=== PATIENT | female | born 1950 | race Caucasian/White ===

== ENCOUNTER 2018-11-03 07:44 | Outpatient (CLI) | payer MEDICARE, BC ==
--- NOTE | 2018-11-03 08:10 | RAD ---
EXAM: 2 views chest PROVIDED CLINICAL HISTORY: Dyspnea COMPARISON: 07/28/2005 FINDINGS: Cardiac silhouette is within normal. Hiatal hernia is demonstrated. Calcified granuloma right lung ba se. No focal consolidation, pleural fluid or pneumothorax apparent. IMPRESSION: No evidence for an acute cardiopulmonary process.
== END 2018-11-03 07:45 | disposition home or self-care (01) ==
LOC: RAD 07:44
PROVIDERS: ATTEND Internal Medicine Critical Care Medicine
DX: R06.00 Dyspnea, unspecified (principal)
CPT/HCPCS: 71046

== ENCOUNTER 2019-09-20 17:05 | Emergency (ER) | payer MEDICARE, BC ==
[~2019-09-20 17:05] MED LIST: Iopamidol-370 76% 500 ML 1 ML ONE
[2019-09-20 17:31] LABS: #Basophils 0.1 thou/uL (0.0-0.2); #Eosinphils 0.1 thou/uL (0.0-0.7); #Lymphocytes 1.3 thou/uL (1.20-3.40); #Monocytes 0.5 thou/uL (0.11-0.59); #Neutrophils 4.7 thou/uL (1.40-6.50); %Basophils 0.9 % (0.0-1.0); %Eosinophils 2.2 % (0.0-10.0); %Lymphocytes 19.5 % (21.0-51.0); %Monocytes 7.3 % (0.0-10.0); %Neutrophils 70.2 % (42.0-75.0); Hemoglobin 12.5 g/dL (12.0-16.0); Mean Corpuscular HGB CONC 33.4 g/dL (32.0-36.0); Mean Corpuscular Hemoglobin 31.3 pg (27.0-31.0); Mean Corpuscular Volume 93.6 fL (78.0-98.0); Mean Platelet Volume 8.3 fL (7.4-10.4); Platelet Count 272 thou/uL (130-400); RBC Distribution Width 13.1 % (11.5-14.5); Red Blood Cell (RBC) Count 3.99 mill/uL (4.20-5.40); White Blood Cell (WBC) Count 6.7 thou/uL (4.8-10.8)
--- NOTE | 2019-09-20 17:43 | RAD ---
TWO VIEWS CHEST: 09/20/19 COMPARISON: 11/03/18 HISTORY: Chest pressure and cough. FINDINGS: Two views of the chest shows normal sized cardiomediastinal silhouette. There is a moderate hiatal he rnia. There is no evidence of consolidation, mass, or pleural effusion. IMPRESSION: 1. No evidence of acute cardiopulmonary disease. 2. Moderate hiatal hernia. POS: [facility]
[2019-09-20 17:53] LABS: ALT (SGPT) 15 U/L (8-55); AST (SGOT) 23 U/L (5-34); Albumin 3.9 g/dL (3.4-4.8); Alkaline Phosphatase 80 U/L (40-110); Anion Gap 14 mmol/L (10-20); BUN (Urea Nitrogen) 15 mg/dL (9.8-20.1); Bilirubin, Total 0.2 mg/dL (0.2-1.2); Calc. Creatinine Clearance 0 mL/min (70-130); Carbon Dioxide 25 mmol/L (23-31); Chloride 104 mmol/L (98-107); Estimated GFR-MDRD 56; Globulin 3.4 g/dL (2.4-3.5); Glucose 97 mg/dL (80-115); Potassium 4.6 mmol/L (3.5-5.1); Protein, Total 7.3 g/dL (6.0-8.3); Sodium 138 mmol/L (136-145)
--- NOTE | 2019-09-20 21:47 | CT ---
CT angiogram chest: 09/20/2019 COMPARISON: None HISTORY: Chest pain and shortness of breath TECHNIQUE: Axial CT imaging at 2.5 mm intervals through the chest with IV contrast using CT angiogram protocol. Coronal and oblique sagittal 3-D reformatted imaging obtained. FINDINGS: There is no axillary, or subcarinal lymphadenopathy. Mildly prominent lymph nodes in the pr evascular space noted, measuring up to approximately 8-9 mm. Mildly enlarged 1.2 cm left hilar lymph node and mildly enlarged 1.1 cm right hilar lymph node noted. Limited assessment of the upper a bdomen demonstrates no acute findings. There is a moderate sized sliding-type hiatal hernia involving the majority of the gastric fundus and a portion of the gastric body. No significant pleura l, pericardial, or mediastinal fluid is noted. No pulmonary arterial filling defect is seen to suggest the presence of acute pulmonary arterial embo lism. There is a rounded area of masslike pulmonary parenchymal opacity abutting the posteromedial pleura w ithin the right lower lobe region measuring 3.9 cm in greatest dimension. There are linear densities emanating from this extending into the adjacent lung parenchyma raising the possibility of rounded atelectasis. The masslike configuration of this lesion makes it impossible to exclude malignancy on the basis of this examination. There is mild linear density within the right middle lob e anteriorly/medially. The left lung appears grossly unremarkable. Review of the osseous structures demonstrates no acute findings. IMPRESSION: No evidence for pulmonary arterial embolism. Masslike pleural-based opacity within the ri ght lower lobe as detailed above. Short-term follow-up CT examination in [address] is advised. Follow-up pulmonary consultation is advised as well. The differential diagnosis for this [facility] includes bronchogenic carcinoma and rounded atelectasis. Hiatal hernia. CODE T Code LN
[2019-09-20 22:56] LABS: Troponin I Less than 0.010 ng/mL (< 0.028)
== END 2019-09-20 23:42 | disposition home or self-care (01) ==
LOC: ERS 17:05
DX: R07.9 Chest pain, unspecified (principal); R91.8 Other nonspecific abnormal finding of lung field; F41.0 Panic disorder [episodic paroxysmal anxiety]; E78.00 Pure hypercholesterolemia, unspecified; Z87.891 Personal history of nicotine dependence; Z79.899 Other long term (current) drug therapy
CPT/HCPCS: 36415; 71046; 71275; 80053; 83690; 84484; 85025; 85379; 93005; Q9967

== ENCOUNTER 2020-01-10 08:15 | Outpatient (CLI) | payer MEDICARE, BC ==
--- NOTE | 2020-01-10 09:48 | CT ---
CHEST CT SCAN WITHOUT IV CONTRAST: Date: 01/10/2020 HISTORY: Follow-up lung nodule. Cough and wheezing. COMPARISON: CT angiogram chest dated 09/20/2019. FINDINGS: The previously noted medial posterior right lower lobe pleural based mass is again noted and is stabl e in size, measuring approximately 3.9 cm in maximum length. There is some minimal associated linear parenchymal change with this mass, as well as some pleural thickening in the right posterior chest, a s well as some bilateral upper lobe pleural thickening. Scattered interstitial and honeycombing llanos es noted, particularly in the mid lung zones, right middle lobe, and lingula. This is evidence for so me underlying chronic interstitial disease. Moderate to large hiatal hernia. No acute pleural effusio n. No evidence for mediastinal mass. Mediastinal lymph nodes are stable. Visualized upper abdomen is unremarkable. IMPRESSION: 1. Stable pleural based mass-like opacity in the right lower lobe. Since this has not resolved since the prior 09/20/2019 study, consideration for follow-up PET scan might be entertained for further ev aluation. 2. Stable hiatal hernia. 3. Stable minimal interstitial and honeycombing chronic appearing changes. CODE T. CODE LN. POS: [facility]
== END 2020-01-10 08:16 | disposition home or self-care (01) ==
LOC: BICCT 08:15
PROVIDERS: ATTEND Internal Medicine Critical Care Medicine
DX: R91.1 Solitary pulmonary nodule (principal); K44.9 Diaphragmatic hernia without obstruction or gangrene; J98.4 Other disorders of lung
CPT/HCPCS: 71250

== ENCOUNTER 2020-05-09 10:45 | Outpatient (CLI) | payer MEDICARE, BC | END 2020-05-09 10:46 | disposition home or self-care (01) | LOC: CTENTCT 10:45 | PROVIDERS: ATTEND Specialist | DX: J32.9 Chronic sinusitis, unspecified (principal) | CPT/HCPCS: 70486 ==

== ENCOUNTER 2020-07-02 09:59 | Outpatient (CLI) | payer MEDICARE, BC ==
--- NOTE | 2020-07-02 12:21 | CT ---
CT OF CHEST PERFORMED WITHOUT CONTRAST ENHANCEMENT: Date: 07/02/2020 HISTORY: Follow-up pleural based opacity in right lower lobe. COMPARISON: 01/10/2020 and 09/20/2019. FINDINGS: The lungs show some subpleural reticular scarring in the right upper lobe, stable. The pleural based opacity within the right lung base in more of a paravertebral location. It is stable in size. It maria esther ures 3.8 cm in maximum dimension. No additional pulmonary findings. No significant mediastinal adenopathy appreciated or hilar adenopathy on this noncontrast study. A la rge hiatal hernia is seen. Visualized liver parenchymal shows no focal abnormality. There is some cortical scarring involving th e upper pole of the right kidney. IMPRESSION: 1. Stable appearance to the pleural based right lower lobe mass measuring 3.8 cm. Additional 6 month follow-up CT examination would be recommended to assess for stability. Consideration for PET scan ma y also be helpful. Given relative stability, this may represent an area of rounded atelectasis. 2. Large hiatal hernia. POS: [facility]
== END 2020-07-02 10:00 | disposition home or self-care (01) ==
LOC: BICCT 09:59
PROVIDERS: ATTEND Internal Medicine Critical Care Medicine
DX: R91.1 Solitary pulmonary nodule (principal); K44.9 Diaphragmatic hernia without obstruction or gangrene; R91.8 Other nonspecific abnormal finding of lung field
CPT/HCPCS: 71250

== ENCOUNTER 2020-07-12 07:46 | Outpatient (CLI) | payer MEDICARE, BC ==
--- NOTE | 2020-07-12 10:14 | PET ---
EXAM: PET/CT HISTORY: Solitary pulmonary nodule TECHNIQUE: PET scanning with CT attenuation correction was performed from the base of the brain to the proximal thighs following the intravenous administration of 11.9 millicuries [id number]. COMPARISON: CTA of the thorax dated September 20, [address] of the thorax without contrast July 02, 2020 FINDINGS: Biodistribution:The biodistribution for the exam appears acceptable. Head and neck: There is appropriate background activity within the brain. No hypermetabolic lymphaden opathy or masses identified. Thorax: The large pleural-based soft tissue density within the posterior medial aspect of the right l ower lobe is relatively stable in size measuring 4.9 x 2.3 cm. There is crowding of the surrounding pulmonary vasculature near this region. There are swirling linear density extending to this pleural-b ased density. The peak SUV uptake is 2.26 and mean uptake is 2.13. No additional focal pulmonary lesion is evident. No hypermetabolic pleural effusion or lymphadenopathy is evident. There is a large sized hiatal hernia. There are calcified lymph nodes within the right hilar region. Abdomen and pelvis: There is expected background activity within the GI and systems. No hypermetab olic mass, lymphadenopathy or ascites is present. Osseous structures and skin: No hypermetabolic skin or osseous lesion is identified. IMPRESSION: The large pleural-based soft tissue density within the posterior medial aspect of the right lower lob e has been relatively stable since August 2019. There is crowding of the adjacent pulmonary vasculature . There are are swirling linear opacities extending into the pleural-based mass consisten t with comet tailing. There is no overt hypermetabolic uptake associated with this lesion. Consultation findings are most consistent with rounded atelectasis.
== END 2020-07-12 07:47 | disposition home or self-care (01) ==
LOC: PET 07:46
PROVIDERS: ATTEND Internal Medicine Critical Care Medicine
DX: R91.1 Solitary pulmonary nodule (principal); R91.8 Other nonspecific abnormal finding of lung field; J98.4 Other disorders of lung
CPT/HCPCS: 78815; A9552

== ENCOUNTER 2021-09-23 10:16 | Outpatient (CLI) | payer MEDICARE, BC ==
[2021-09-23 18:13] LABS: SARS-CoV-2 PCR by NAA Not Detected (NotDetected)
== END 2021-09-23 10:17 | disposition home or self-care (01) ==
LOC: LABBT 10:16
PROVIDERS: ATTEND Internal Medicine
DX: K44.9 Diaphragmatic hernia without obstruction or gangrene (principal); R13.14 Dysphagia, pharyngoesophageal phase; R11.2 Nausea with vomiting, unspecified; Z20.822 Contact with and (suspected) exposure to COVID-19
CPT/HCPCS: U0003; U0005

== ENCOUNTER 2021-09-26 09:10 | Outpatient (CLI) | payer MEDICARE, BC | END 2021-09-26 09:11 | disposition home or self-care (01) | LOC: RAD 09:10 | PROVIDERS: ATTEND Internal Medicine | DX: K44.9 Diaphragmatic hernia without obstruction or gangrene (principal) | CPT/HCPCS: 74246 ==

== ENCOUNTER 2021-10-03 08:56 | Outpatient (CLI) | payer MEDICARE, BC ==
[2021-10-03 09:42] LABS: #Eosinphils 0.1 10x3/uL (0.0-0.5); #Monocytes 0.4 10x3/uL (0.0-1.1); #Neutrophils 3.4 10x3/uL (1.5-8.4); %Basophils 0.6 % (0.0-2.0); %Eosinophils 2.4 % (0.0-6.0); %Lymphocytes 21.3 % (18.0-47.0); %Neutrophils 67.5 % (40.0-75.0); Hemoglobin 11.4 g/dL (12.0-15.5); Mean Corpuscular HGB CONC 30.5 g/dL (32.0-36.0); Mean Corpuscular Hemoglobin 27.7 pg (27.0-33.0); Mean Corpuscular Volume 90.8 fl (81.6-98.3); Mean Platelet Volume 10.3 fl (7.4-10.4); Platelet Count 256 10x3/uL (150-450); RBC Distribution Width 16.1 % (11.5-14.5); Red Blood Cell (RBC) Count 4.12 10x6/uL (3.90-5.03)
[2021-10-03 10:28] LABS: Anion Gap 13 mmol/L (10-20); BUN (Urea Nitrogen) 14 mg/dL (9.8-20.1); Calc. Creatinine Clearance 0 mL/min (70-130); Carbon Dioxide 24 mmol/L (23-31); Chloride 106 mmol/L (98-107); Glucose 93 mg/dL (80-115); Potassium 4.2 mmol/L (3.5-5.1); Sodium 139 mmol/L (136-145)
[2021-10-03 17:48] LABS: SARS-CoV-2 PCR by NAA Not Detected (NotDetected)
== END 2021-10-03 08:57 | disposition home or self-care (01) ==
LOC: LABBT 08:56
PROVIDERS: ATTEND Specialist
DX: Z01.818 Encounter for other preprocedural examination (principal); K44.9 Diaphragmatic hernia without obstruction or gangrene; Z20.822 Contact with and (suspected) exposure to COVID-19
CPT/HCPCS: 80048; 85025; 93005; U0003; U0005; 93010

== ENCOUNTER 2021-10-08 07:10 | Inpatient (IN) | payer MEDICARE, BC ==
[2021-10-03 13:06] VITALS: BMI 29.0
[2021-10-08] MEDS ORDERED: Acetaminophen 500 MG TAB ONE (09:21)
[2021-10-08] MEDS ORDERED: Fentanyl 100 MCG/2 ML VIAL ONE ×3 (10:55→14:37)
[2021-10-08] MEDS ORDERED: Bupivacaine 0.25% 10 ML VIAL ONE ×2 (10:56→10:57)
[2021-10-08] MEDS ORDERED: Lidocaine 1% w/Epinephrine 1:100K 30 ML VIAL ONE (10:57)
[2021-10-08] MEDS ORDERED: ceFAZolin 2 GM/Dextrose 50 ML IVPB ONE (11:06)
[2021-10-08] MEDS ORDERED: Rocuronium Bromide 10 MG/ML (10ML VIAL) ONE (11:21)
[2021-10-08] MEDS ORDERED: PROPOFOL 200 MG/20 ML VIAL ONE (11:21)
[2021-10-08] MEDS ORDERED: Lidocaine 1% PF 5 ML VIAL ONE (11:21)
[2021-10-08] MEDS ORDERED: Dexamethasone 20 MG/5 ML VIAL ONE (11:21)
[2021-10-08] MEDS ORDERED: Ondansetron PF 4 MG/2 ML Vial ONE (11:21)
[2021-10-08] MEDS ORDERED: Metoprolol Tartrate 5 MG/5 ML VIAL ONE (11:21)
[2021-10-08] MEDS ORDERED: Glycopyrrolate 0.2 MG/ML 5 ML SYRINGE ONE (11:21)
[2021-10-08] MEDS ORDERED: Esmolol 100 MG/10 ML VIAL ONE (11:21)
[2021-10-08] MEDS ORDERED: Promethazine HCl 25 MG/ML VIAL IM PRN ×3 (14:26→14:40)
[2021-10-08] MEDS ORDERED: Promethazine HCl 25 MG/ML VIAL IVPB PRN ×2 (14:26→14:27)
[2021-10-08] MEDS ORDERED: Ondansetron HCl/PF 4 MG/2 ML Vial IVP PRN ×2 (14:26→14:27)
[2021-10-08] MEDS ORDERED: Mag-Al 1200 mg/1200 mg/30 ML UDCUP PO PRN (14:40)
[2021-10-08] MEDS ORDERED: Calcium Carbonate 500 MG ChewTAB PO PRN (14:40)
[2021-10-08] MEDS ORDERED: Dextrose 5% in Water 1,000 ML IV PRN (14:40)
[2021-10-08] MEDS ORDERED: Dextrose 50% Abboject 50 ML SYRINGE SLOW IVP PRN (14:40)
[2021-10-08] MEDS ORDERED: traMADol HCl 50 MG TAB PO PRN ×2 (14:40)
[2021-10-08] MEDS ORDERED: hydrALAZINE 20 MG/ML VIAL SLOW IVP PRN (14:40)
[2021-10-08] MEDS ORDERED: Morphine 4 MG/ML VIAL SLOW IVP PRN (14:46)
[2021-10-08] MEDS: D5 1/2 NS w/20 mEq KCL 1,000 ML IV SCH ×2 (16:27→19:35)
[2021-10-08] MEDS: Morphine 4 MG/ML VIAL SLOW IVP PRN ×2 (17:03→21:09)
[2021-10-08] MEDS: Famotidine/PF 20 mg/2ml Vial SLOW IVP SCH (19:31)
[2021-10-08] MEDS: Atenolol 50 MG TAB PO SCH (19:35)
[2021-10-08] MEDS: traZODone HCl 50 MG TAB PO SCH (19:36)
[2021-10-08] MEDS: Famotidine 20 MG TAB PO SCH (19:36)
[2021-10-08] MEDS: Ondansetron PF 4 MG/2 ML Vial IVP PRN (21:09)
[2021-10-09] MEDS: Ondansetron PF 4 MG/2 ML Vial IVP PRN (03:45)
[2021-10-09] MEDS: Morphine 4 MG/ML VIAL SLOW IVP PRN ×2 (03:45→17:21)
[2021-10-09] MEDS: D5 1/2 NS w/20 mEq KCL 1,000 ML IV SCH (03:51)
[2021-10-09 05:52] LABS: #Lymphocytes 0.8 thou/uL (1.20-3.40); #Monocytes 1.1 thou/uL (0.11-0.59); #Neutrophils 8.8 thou/uL (1.40-6.50); %Basophils 0.1 % (0.0-1.0); %Eosinophils 0.1 % (0.0-10.0); %Lymphocytes 7.8 % (21.0-51.0); %Monocytes 9.9 % (0.0-10.0); %Neutrophils 82.1 % (42.0-75.0); Hemoglobin 11.4 g/dL (12.0-16.0); Mean Corpuscular HGB CONC 31.1 g/dL (32.0-36.0); Mean Corpuscular Hemoglobin 29.3 pg (27.0-31.0); Mean Corpuscular Volume 94.1 fL (78.0-98.0); Mean Platelet Volume 7.8 fL (7.4-10.4); Platelet Count 246 thou/uL (130-400); RBC Distribution Width 14.2 % (11.5-14.5); Red Blood Cell (RBC) Count 3.89 mill/uL (4.20-5.40); White Blood Cell (WBC) Count 10.7 thou/uL (4.8-10.8)
[2021-10-09 06:13] LABS: ALT (SGPT) 147 U/L (8-55); AST (SGOT) 201 U/L (5-34); Albumin 3.6 g/dL (3.4-4.8); Alkaline Phosphatase 68 U/L (40-110); Anion Gap 13 mmol/L (10-20); BUN (Urea Nitrogen) 8 mg/dL (9.8-20.1); Bilirubin, Total 0.3 mg/dL (0.2-1.2); Calc. Creatinine Clearance 87 mL/min (70-130); Calcium 8.4 mg/dL (7.8-10.44); Carbon Dioxide 23 mmol/L (23-31); Chloride 106 mmol/L (98-107); Globulin 2.7 g/dL (2.4-3.5); Glucose 151 mg/dL (80-115); Potassium 5.2 mmol/L (3.5-5.1); Protein, Total 6.3 g/dL (5.8-8.1); Sodium 137 mmol/L (136-145)
[2021-10-09] MEDS: Losartan 25 MG TAB PO SCH (09:06)
[2021-10-09] MEDS: Famotidine 20 MG TAB PO SCH ×2 (09:06→20:23)
[2021-10-09] MEDS: Famotidine/PF 20 mg/2ml Vial SLOW IVP SCH ×2 (09:13→20:23)
[2021-10-09] MEDS: Atenolol 50 MG TAB PO SCH (20:22)
[2021-10-09] MEDS: traZODone HCl 50 MG TAB PO SCH (20:23)
[2021-10-10 05:46] LABS: #Eosinphils 0.1 thou/uL (0.0-0.7); #Lymphocytes 1.1 thou/uL (1.20-3.40); #Monocytes 0.6 thou/uL (0.11-0.59); #Neutrophils 5.6 thou/uL (1.40-6.50); %Basophils 0.3 % (0.0-1.0); %Eosinophils 0.8 % (0.0-10.0); %Lymphocytes 15.2 % (21.0-51.0); %Monocytes 8.1 % (0.0-10.0); %Neutrophils 75.6 % (42.0-75.0); Mean Corpuscular HGB CONC 30.5 g/dL (32.0-36.0); Mean Corpuscular Volume 95.1 fL (78.0-98.0); Mean Platelet Volume 8.2 fL (7.4-10.4); Platelet Count 189 thou/uL (130-400); RBC Distribution Width 14.4 % (11.5-14.5); White Blood Cell (WBC) Count 7.4 thou/uL (4.8-10.8)
[2021-10-10 06:10] LABS: ALT (SGPT) 394 U/L (8-55); AST (SGOT) 534 U/L (5-34); Albumin 3.6 g/dL (3.4-4.8); Alkaline Phosphatase 79 U/L (40-110); Anion Gap 11 mmol/L (10-20); BUN (Urea Nitrogen) 7 mg/dL (9.8-20.1); Bilirubin, Total 0.4 mg/dL (0.2-1.2); Calc. Creatinine Clearance 90 mL/min (70-130); Calcium 8.5 mg/dL (7.8-10.44); Carbon Dioxide 26 mmol/L (23-31); Chloride 105 mmol/L (98-107); Globulin 2.8 g/dL (2.4-3.5); Glucose 96 mg/dL (80-115); Potassium 4.2 mmol/L (3.5-5.1); Protein, Total 6.4 g/dL (5.8-8.1); Sodium 138 mmol/L (136-145)
[2021-10-10 08:09] VITALS: TEMP 98.6
[2021-10-10] MEDS: Losartan 25 MG TAB PO SCH (09:44)
[2021-10-10] MEDS: Famotidine 20 MG TAB PO SCH (09:45)
[2021-10-10] MEDS: Famotidine/PF 20 mg/2ml Vial SLOW IVP SCH (09:45)
[2021-10-10 12:22] VITALS: BP 127/76
== END 2021-10-10 15:01 | disposition home or self-care (01) | DRG 328 ==
LOC: SDC 07:10 → SJJU 14:37
PROVIDERS: ADMIT Specialist; ATTEND Specialist
PROC: 0DV44ZZ Restriction of Esophagogastric Junction, Percutaneous Endoscopic Approach (ICD-10-PCS; principal; 2021-10-08)
PROC: 0BUT4JZ Supplement Diaphragm with Synthetic Substitute, Percutaneous Endoscopic Approach (ICD-10-PCS; 2021-10-08)
DX: K44.9 Diaphragmatic hernia without obstruction or gangrene (principal); R13.10 Dysphagia, unspecified; K76.0 Fatty (change of) liver, not elsewhere classified; K21.9 Gastro-esophageal reflux disease without esophagitis; Z88.5 Allergy status to narcotic agent; Z88.8 Allergy status to other drugs, medicaments and biological substances; Z90.710 Acquired absence of both cervix and uterus; Z90.89 Acquired absence of other organs; Z98.890 Other specified postprocedural states
CPT/HCPCS: 36415; 36416; 74240; 80053; 85025; C1713; C1776; C1781; J0690; J1100; J2270; J2405; J2704; J3010; J3480; S0020